=== PATIENT | male | born 1990 | race Caucasian/White ===

== ENCOUNTER 2020-02-27 20:20 | Emergency (ER) | payer BC, OTHER ==
[2020-02-27] MEDS ORDERED: LIDOCAINE 1% W/EPI 1:100,000 MDV 20 ML VIAL ONE (21:17)
--- NOTE | 2020-02-27 21:55 | EDPHYS ---
Physician Documentation [facility] Name: Ho Robbins Age: 29 yrs Sex: Male : 1990 Arrival Date: 02/27/2020 Time: 20:23 Bed 8 Private MD: ED Physician Arthur Sepulveda HPI: 02/26 21:05 This 29 yrs old Male presents to ER via Wheelchair with complaints of cp Laceration To Leg. 21:05 The patient has a laceration related to: broken glass plate occurred at home. The cp laceration(s) is(are) located on the right knee. Onset: The symptoms/episode began/occurred just prior to arrival. Associated signs and symptoms: The patient has no apparent associated signs or symptoms. Historical: - Allergies: 20:33 Bactrim; ll1 - PMHx: 20:33 Hypertension; traumatic brain injury; ll1 - PSHx: 20:33 None; ll1 - Immunization history:: Last tetanus immunization: up to date Flu vaccine is up to date. - Social history:: Smoking status: Patient denies any tobacco usage or history of. ROS: 21:10 Skin: Positive for laceration(s), of the right knee. cp 21:10 All other systems are negative. cp Exam: 21:15 Constitutional: The patient appears in no acute distress, alert, awake, comfortable, cp well developed, well nourished. 21:15 Musculoskeletal/extremity: ROM: full passive range of motion, in the right knee, cp Perfusion: the extremity is normally perfused throughout, Sensation intact. Joints: All joints are normal except the right knee displays 21:15 Skin: injury, laceration(s), the wound is approximately 2.5 cm(s), of the lateral aspect of right knee, that can be described as clean, no foreign body, linear, with moderate bleeding. Vital Signs: 20:31 BP 141 / 97; Pulse 86; Resp 18; Temp 98.3; Pulse Ox 97% ; Weight 91.63 kg; Height 5 ft. ll1 8 in. (172.72 cm); Pain 6/10; 21:57 BP 130 / 88; Pulse 85; Resp 18; Pulse Ox 96% on R/A; wh 20:31 Body Mass Index 30.71 (91.63 kg, 172.72 cm) ll1 Laceration: 21:52 Wound Repair of 2.5cm ( 1.0in ) subcutaneous laceration to right knee. Linear shaped.. cp Distal neuro/vascular/tendon intact. Anesthesia: Wound infiltrated with 4 mls of 1% lidocaine w/ Epi. Wound prep: Moderate cleansing by nurse. Skin closed with 3 4-0 Prolene using horizontal mattress sutures and sterile technique. Dressed with Bacitracin, 4x4's, Kerlix. Patient tolerated well. MDM: 21:00 Patient medically screened. cp 21:15 Differential diagnosis: superficial laceration, tendon injury, vascular injury. cp 21:53 Data reviewed: vital signs, nurses notes, radiologic studies, plain films. Test cp interpretation: by ED physician or midlevel provider: xrays of right knee negative for fracture and/or foreign body. Counseling: I had a detailed discussion with the patient and/or guardian regarding: the historical points, exam findings, and any diagnostic results supporting the discharge/admit diagnosis, radiology results, to return to the emergency department if symptoms worsen or persist or if there are any questions or concerns that arise at home. 02/26 21:01 Order name: XRAY Knee RIGHT 3 view cp 02/26 21:01 Order name: Dressing - Wound; Complete Time: 21:55 cp 02/26 21:01 Order name: Gloves, Sterile; Complete Time: 21:03 cp 02/26 21:01 Order name: Setup Suture Tray; Complete Time: 21:03 cp 02/26 21:01 Order name: Wound Care: please clean and irrigate wound; Complete Time: 21:03 cp Administered Medications: 21:49 Drug: Lidocaine-Epinephrine -1%: (1:100,000) 10 ml {Note: Administered by Provider.} wh Volume: 20 ml; Route: Infiltration; Disposition: 22:30 Chart complete. cp 02/27 00:15 Co-signature as Attending Physician, Arthur Sepulveda MD. rn Disposition: 02/27/20 21:54 Discharged to Home. Impression: Laceration without foreign body of knee - right. - Condition is Stable. - Discharge Instructions: Laceration Care, Adult. - Medication Reconciliation Form, Thank You Letter, Antibiotic Education, Prescription Opioid Use form. - Follow up: Private Physician; When: 10 - 14 days; Reason: Staple/Suture removal. - Problem is new. - Symptoms have improved. Signatures: Dispatcher [employer] EDArthur Whitney MD MD rn Santos Barnes PA PA cp Habalo, Winsy wh Lewis, Lynsay RN RN ll1 Corrections: (The following items were deleted from the chart) 02/26 22:33 21:54 02/27/2020 21:54 Discharged to Home. Impression: Laceration without foreign body wh of knee - right. Condition is Stable. Forms are Medication Reconciliation Form, Thank You Letter, Antibiotic Education, Prescription Opioid Use. Follow up: Private Physician; When: 10 - 14 days; Reason: Staple/Suture removal. Problem is new. Symptoms have improved. cp
--- NOTE | 2020-02-27 21:55 | ER ---
Nurse's Notes [facility] Name: Ho Robbins Age: 29 yrs Sex: Male : 1990 Arrival Date: 02/27/2020 Time: 20:23 Bed 8 Private MD: Diagnosis: Laceration without foreign body of knee-right Presentation: 02/26 20:31 Chief complaint: Patient states: Fell while holding a plate 20 min [employer]. Glass plate ll1 broke and lacerated right leg. Bleeding controlled with pressure. Coronavirus screen: Client denies travel out of the [place] in the last 14 days. At this time, the client does not indicate any symptoms associated with coronavirus-19. Ebola Screen: Patient denies travel to an Ebola-affected area in the 21 days before illness onset. Complicating Factors: Glass or an other foreign body is present in the wound. Initial Sepsis Screen: Does the patient meet any 2 criteria? No. Patient's initial sepsis screen is negative. Risk Assessment: Do you want to hurt yourself or someone else? Patient reports no desire to harm self or others. Onset of symptoms was February 27, 2020. 20:31 Method Of Arrival: Wheelchair ll1 20:31 Acuity: RASHID 4 ll1 21:00 Initial Sepsis Screen: Does the patient have a suspected source of infection? Yes: Skin wh breakdown/wound. Historical: - Allergies: 20:33 Bactrim; ll1 - PMHx: 20:33 Hypertension; traumatic brain injury; ll1 - PSHx: 20:33 None; ll1 - Immunization history:: Last tetanus immunization: up to date Flu vaccine is up to date. - Social history:: Smoking status: Patient denies any tobacco usage or history of. Screenin:00 Abuse screen: Denies threats or abuse. Denies injuries from another. Nutritional wh screening: No deficits noted. Tuberculosis screening: No symptoms or risk factors identified. Fall Risk None identified. Assessment: 21:00 General: Appears in no apparent distress. Behavior is calm, cooperative. Pain: Denies wh pain. Neuro: Level of Consciousness is awake, alert, obeys commands, Oriented to person, place, time, situation. Cardiovascular: Capillary refill < 3 seconds. Respiratory: Airway is patent Respiratory effort is even, unlabored, Respiratory pattern is regular, symmetrical. GI: Abdomen is flat, non-distended. : No signs and/or symptoms were reported regarding the genitourinary system. EENT: No signs and/or symptoms were reported regarding the EENT system. Derm: Skin is intact, is healthy with good turgor, Skin is pink, warm \T\ dry. normal. Musculoskeletal: Circulation, motion, and sensation intact. Injury Description: Laceration sustained to right knee is clean, 2.6 to 7.5 cm long, bleeding moderately. 21:56 Reassessment: Patient appears in no apparent distress at this time. No changes from previously documented assessment. Patient and/or family updated on plan of care and expected duration. Pain level reassessed. Patient is alert, oriented x 3, equal unlabored respirations, skin warm/dry/pink. Vital Signs: 20:31 BP 141 / 97; Pulse 86; Resp 18; Temp 98.3; Pulse Ox 97% ; Weight 91.63 kg; Height 5 ft. ll1 8 in. (172.72 cm); Pain 6/10; 21:57 BP 130 / 88; Pulse 85; Resp 18; Pulse Ox 96% on R/A; wh 20:31 Body Mass Index 30.71 (91.63 kg, 172.72 cm) ll1 ED Course: 20:23 Patient arrived in ED. cl3 20:32 Triage completed. ll1 20:33 Arm band placed on Patient placed in an exam room, on a stretcher. ll1 20:58 Santos Barnes PA is PHCP. cp 20:58 Arthur Sepulveda MD is Attending Physician. cp 21:00 Patient has correct armband on for positive identification. Bed in low position. Call light in reach. Side rails up X 1. Adult w/ patient. Pulse ox on. NIBP on. 21:02 Tisha Rivas is Primary Nurse. 21:32 XRAY Knee RIGHT 3 view In Process Unspecified. EDMS 21:50 Assist provider with laceration repair on right knee that was between 2.6 to 7.5 cm wh using sutures. Set up tray. Performed by Santos PERKINS Dressed with 4X4s, Patient tolerated well. 22:33 Patient did not have IV access during this emergency room visit. Administered Medications: 21:49 Drug: Lidocaine-Epinephrine -1%: (1:100,000) 10 ml {Note: Administered by Provider.} Volume: 20 ml; Route: Infiltration; Outcome: 21:54 Discharge ordered by . nasrin 22:33 Discharged to home ambulatory, with family. 22:33 Condition: stable 22:33 Discharge instructions given to patient, family, Instructed on discharge instructions, follow up and referral plans. wound care, Demonstrated understanding of instructions, follow-up care, wound care. 22:33 Patient left the ED. Signatures: Dispatcher [employer] EDMS Santos Barnes PA PA cp Habalo, Winsy wh Lewis, Charde cl3 Amita Brown, RN RN ll1
[2020-02-27 22:46] VITALS: TEMP 98.3
[2020-02-27 22:48] VITALS: BP 130/88; O2SAT 96
--- NOTE | 2020-02-28 07:14 | RAD REPORT ---
EXAM DESCRIPTION: RAD - Knee Right 3 View - 02/27/2020 9:34 pm CLINICAL HISTORY: laceration, knee pain, possible foreign body COMPARISON: No comparisonsNone. FINDINGS: No fracture, dislocation or periosteal reaction.No joint effusion seen. No joint space cordell rowing. Lateral knee soft tissue wound is evident. Bandaging is in place. No foreign body identifiabl e. IMPRESSION: No acute bone or joint finding. No foreign body identifiable. Bandaging could mask a foreign body of similar density.
== END 2020-02-27 22:33 | disposition home or self-care (01) ==
LOC: ER 20:20
PROC: 0JQN0ZZ Repair Right Lower Leg Subcutaneous Tissue and Fascia, Open Approach (ICD-10-PCS; principal; 2020-02-27)
DX: S81.011A Laceration without foreign body, right knee, initial encounter (principal); W25.XXXA Contact with sharp glass, initial encounter; Y93.9 Activity, unspecified; Y92.009 Unspecified place in unspecified non-institutional (private) residence as the place of occurrence of the external cause; I10 Essential (primary) hypertension; Z88.1 Allergy status to other antibiotic agents; Z87.820 Personal history of traumatic brain injury
CPT/HCPCS: 99284

== ENCOUNTER 2024-05-04 22:11 | Emergency (ER) | payer OTHER ==
[2024-05-04] MEDS ORDERED: NA CHLORIDE 0.9% 2,000 ML ONE (22:31)
[2024-05-04 22:57] LABS: Absolute Basophils 0.1 K/uL (0-0.5); Absolute Eosinophils 0.1 K/uL (0-0.5); Absolute Lymphocytes (CBC) 2.2 K/uL (0.7-4.9); Absolute Monocytes 1.2 K/uL (0.1-1.3); Absolute Neutrophil 6.3 K/uL (1.8-8.0); Basophils % 0.7 % (0-1.3); Eosinophils % 0.9 % (0-4.4); Hematocrit 43.3 % (39.6-49.0); Lymphocytes % 22.6 % (15.3-44.8); MCH 36.1 pg (27.0-35.0); MCHC 34.7 g/dL (32.0-36.0); MCV 103.9 fL (80-100); MPV 7.1 fL (7.6-11.3); Monocytes % 12.3 % (3.3-12.3); Neutrophils % 63.5 % (41.7-73.7); Nucleated Red Blood Cells % 0.1 % (0-0); PT Prothrombin Time 12.2 SECONDS (9.4-12.5); PTT, Activated Partial Thromb 33.1 SECONDS (24.3-36.9); Platelets 228 thou/uL (152-406); Protime INR 1.09; RBC Red Blood Cell Count 4.17 M/uL (4.33-5.43); Red Cell Distribution Width 12.2 % (12.1-15.2)
[2024-05-04 23:09] LABS: ALT/SGPT 47 U/L (16-61); AST/SGOT 102 U/L (15-37); Albumin 3.8 g/dL (3.4-5.0); Albumin/Globulin Ratio 0.9 (1.1-1.8); Alkaline Phosphatase 92 U/L (45-117); Anion Gap 9.7 mEq/L (5.0-15.0); BUN Blood Urea Nitrogen 18 mg/dL (7-18); Bicarbonate 25 mEq/L (21-32); Bilirubin Total 0.4 mg/dL (0.2-1.0); Globulin 4.2 g/dL (2.3-3.5); Glomerular Filtration Rate 120 ml/min (=/>90); Glucose Level 97 mg/dL (74-106); Potassium 3.7 mEq/L (3.5-5.1); Sodium Level 135 mEq/L (136-145)
[2024-05-04 23:10] LABS: Bilirubin Direct < 0.2 mg/dL (0-0.2); Bilirubin Indirect, Calculated 0.2 mg/dL (0.2-0.8)
--- NOTE | 2024-05-05 00:54 | ER ---
Nurse's Notes [facility] Name: Ho Robbins Age: 34 yrs Sex: Male : 1990 Arrival Date: 05/04/2024 Time: 22:11 Bed 7 Private MD: Diagnosis: Acute Cannabis Intoxication Presentation: 05/04 22:17 Chief complaint: EMS states: patient took 1000mg THC gummy outside the gym. EMS states al5 he took the gummy, asked an individual for a ride home, decided to lay down on the concrete. Coronavirus screen: At this time, the client does not indicate any symptoms associated with coronavirus-19. Ebola Screen: No symptoms or risks identified at this time. Initial Sepsis Screen: Does the patient meet any 2 criteria? HR > 90 bpm. No. Patient's initial sepsis screen is negative. Does the patient have a suspected source of infection? No. Patient's initial sepsis screen is negative. Risk Assessment: Do you want to hurt yourself or someone else? Patient reports no desire to harm self or others. Onset of symptoms was May 04, 2024. 22:17 Method Of Arrival: EMS: [facility] al5 22:17 Acuity: RASHID 3 al5 22:22 Care prior to arrival: Glucose check: 77. al5 Triage Assessment: 22:21 General: Appears in no apparent distress. comfortable, Behavior is calm, cooperative. al5 Pain: Denies pain. EENT: No signs and/or symptoms were reported regarding the EENT system. Neuro: Level of Consciousness is awake, alert, obeys commands, Oriented to person, place, time, situation. Cardiovascular: Capillary refill < 3 seconds Patient's skin is warm and dry. Respiratory: Airway is patent Respiratory effort is even, unlabored, Respiratory pattern is regular, symmetrical. GI: No signs and/or symptoms were reported involving the gastrointestinal system. : No signs and/or symptoms were reported regarding the genitourinary system. Derm: Skin is intact, is healthy with good turgor, Skin is pink, warm \T\ dry. normal. Musculoskeletal: No signs and/or symptoms reported regarding the musculoskeletal system. Historical: - Allergies: 22:21 Bactrim; al5 - PMHx: 22:21 Hypertension; traumatic brain injury; al5 - PSHx: 22:21 None; al5 - Immunization history:: Adult Immunizations up to date. - Infectious Disease History:: Denies. - Social history:: Smoking status: Patient denies any tobacco usage or history of. Patient uses street drugs, marijuana. - Family history:: not pertinent. Screenin:40 [facility] ED Fall Risk Assessment (Adult) History of falling in the last 3 months, bm8 including since admission No falls in past 3 months (0 pts) Confusion or Disorientation No (0 pts) Intoxicated or Sedated Yes (3 pts) Impaired Gait Yes (1 pt) Mobility Assist Device Used No (0 pt) Altered Elimination No (0 pt) Score/Fall Risk Level 3 or more points = High Risk Oriented to surroundings, Maintained a safe environment, Educated pt \T\ family on fall prevention, incl call for assistance when getting out of bed, Assessed \T\ reinforced patient's understanding of fall precautions, Hourly rounding (assess needs \T\ fall precautionary measures) done, Used ambulatory aids as needed (educated on \T\ assisted with), Used gait belt as appropriate. Abuse screen: Denies threats or abuse. Nutritional screening: No deficits noted. Tuberculosis screening: No symptoms or risk factors identified. Assessment: 22:29 Reassessment: pt refused EKG. bm8 22:40 General: Appears in no apparent distress. comfortable, Behavior is calm, cooperative, bm8 appropriate for age. Pain: Denies pain. Neuro: Level of Consciousness is awake, alert, obeys commands, Oriented to person, place, time, situation, Appropriate for age. Cardiovascular: Denies chest pain, Heart tones S1 S2 present Capillary refill < 3 seconds in bilateral fingers. Respiratory: Airway is patent Respiratory effort is even, unlabored, Respiratory pattern is regular, symmetrical, Breath sounds are clear bilaterally. GI: No signs and/or symptoms were reported involving the gastrointestinal system. : No signs and/or symptoms were reported regarding the genitourinary system. EENT: No signs and/or symptoms were reported regarding the EENT system. Derm: No signs and/or symptoms reported regarding the dermatologic system. Musculoskeletal: No signs and/or symptoms reported regarding the musculoskeletal system. 05/05 00:05 Reassessment: Patient appears in no apparent distress at this time. Patient and/or bm8 family updated on plan of care and expected duration. Pain level reassessed. Patient is alert, oriented x 3, equal unlabored respirations, skin warm/dry/pink. Patient denies pain at this time. Patient states symptoms have improved. 00:42 Reassessment: Patient appears in no apparent distress at this time. Patient and/or bm8 family updated on plan of care and expected duration. Pain level reassessed. Patient is alert, oriented x 3, equal unlabored respirations, skin warm/dry/pink. Patient denies pain at this time. Patient states symptoms have improved. 00:42 Reassessment: brother has arrived to take pt home, pending discharge. bm8 Vital Signs: 05/04 22:17 BP 141 / 104; Pulse 100; Resp 16; Temp 98.6; Pulse Ox 98% on R/A; Weight 99.79 kg; al5 Height 5 ft. 7 in. ; Pain 0/10; 22:40 BP 134 / 91; Pulse 100; Resp 13; Temp 98.6; Pulse Ox 100% on R/A; Pain 0/10; bm8 05/05 00:05 BP 123 / 87; Pulse 107; Resp 18; Temp 98.6; Pulse Ox 100% ; Pain 0/10; bm8 00:42 BP 154 / 98; Pulse 100; Resp 18; Temp 98.6; Pulse Ox 99% ; Pain 0/10; bm8 05/04 22:17 Body Mass Index 34.46 (99.79 kg, 170.18 cm) al5 05/04 22:17 Pain Scale: Adult al5 22:40 Pain Scale: Adult bm8 05/05 00:05 Pain Scale: Adult bm8 00:42 Pain Scale: Adult bm8 Josephine Coma Score: 05/04 22:40 Eye Response: spontaneous(4). Motor Response: obeys commands(6). Verbal Response: bm8 oriented(5). Total: 15. 05/05 00:05 Eye Response: spontaneous(4). Motor Response: obeys commands(6). Verbal Response: bm8 oriented(5). Total: 15. 00:42 Eye Response: spontaneous(4). Motor Response: obeys commands(6). Verbal Response: bm8 oriented(5). Total: 15. 19:38 Eye Response: spontaneous(4). Motor Response: obeys commands(6). Verbal Response: sp4 confused(4). Total: 14. ED Course: 05/04 22:17 Patient arrived in ED. ha1 22:20 Triage completed. al5 22:22 Arm band placed on right wrist. Patient placed in the treatment room, on a stretcher. al5 22:27 Isra Cline MD is Attending Physician. sp4 22:37 Kevin Leon, RN is Primary Nurse. bm8 22:37 No provider procedures requiring assistance completed. Initial lab(s) drawn, by ED bm8 staff, sent to lab. Inserted saline lock: 20 gauge in right antecubital area, using aseptic technique. Blood collected. Flushed with 10 mL NS. Patient maintains SpO2 saturation greater than 95% on room air. 22:40 Patient has correct armband on for positive identification. Placed in gown. Bed in low bm8 position. Call light in reach. Side rails up X 1. Client placed on continuous cardiac and pulse oximetry monitoring. NIBP monitoring applied. phototypesetting equipment monitor on. Pulse ox on. NIBP on. Door closed. Noise minimized. Warm blanket given. Pillow given. Verbal reassurance given. 05/05 00:59 Provided Education on: post er care. bm8 00:59 IV discontinued, intact, bleeding controlled, No redness/swelling at site. Pressure bm8 dressing applied. Administered Medications: 05/04 22:43 Drug: NS 0.9% IV 1000 ml IV at 1000 ml once; to be given as a bolus over 60 minutes bm8 Route: IV; Rate: 1000 ml; Site: right antecubital; 05/05 01:00 Follow up: IV Status: Completed infusion; IV Intake: 1000ml bm8 00:05 Drug: NS 0.9% IV 1000 ml IV at 1000 ml once; to be given as a bolus over 60 minutes bm8 Route: IV; Rate: 1000 ml; Site: right antecubital; 01:00 Follow up: Response: No adverse reaction; IV Status: Completed infusion; IV Intake: bm8 1000ml Medication: 05/04 22:40 VIS not applicable for this client. bm8 Intake: 05/05 01:00 IV: 1000ml; Total: 1000ml. bm8 01:00 IV: 1000ml; Total: 2000ml. bm8 Outcome: 00:53 Discharge ordered by . sp4 01:00 Patient left the ED. bm8 Signatures: Beverly Dave RN RN ha1 Isra Cline MD MD sp4 Kevin Leon RN RN bm8 Katharina Day RN RN al5
--- NOTE | 2024-05-05 00:54 | EDPHYS ---
Physician Documentation [facility] Name: Ho Robbins Age: 34 yrs Sex: Male : 1990 Arrival Date: 05/04/2024 Time: 22:11 Bed 7 Private MD: ED Physician Isra Cline HPI: 05/04 22:28 This 34 yrs old Male presents to ER via EMS with complaints of Drug Abuse. sp4 05/05 19:38 34-year-old male presents after he ingested cannabis gummy. Patient is acutely sp4 intoxicated the ambulance was called because patient had difficulty walking. . Historical: - Allergies: 05/04 22:21 Bactrim; al5 - PMHx: 22:21 Hypertension; traumatic brain injury; al5 - PSHx: 22:21 None; al5 - Immunization history:: Adult Immunizations up to date. - Infectious Disease History:: Denies. - Social history:: Smoking status: Patient denies any tobacco usage or history of. Patient uses street drugs, marijuana. - Family history:: not pertinent. ROS: 05/05 19:38 Constitutional: Negative for fever, chills, and weight loss, positive for acute sp4 intoxication otherwise full ROS is not available All other systems are negative, Exam: 19:38 Constitutional: This is a well developed, well nourished patient who is awake, alert, sp4 and in no acute distress. Head/Face: Normocephalic, atraumatic. Eyes: Pupils equal round and reactive to light, extra-ocular motions intact. Lids and lashes normal. Conjunctiva and sclera are not injected. Cornea within normal limits. Periorbital areas with no swelling, redness, or edema. ENT: Nares patent. No nasal discharge, no septal abnormalities noted. Tympanic membranes are normal and external auditory canals are clear. Oropharynx with no redness, swelling, or masses, exudates, or evidence of obstruction, uvula midline. Mucous membranes moist. Neck: Trachea midline, no thyromegaly or masses palpated, and no cervical lymphadenopathy. Supple, full range of motion without nuchal rigidity, or vertebral point tenderness. Chest/axilla: Normal chest wall appearance and motion. Nontender with no deformity. No lesions are appreciated. Cardiovascular: Regular rate and rhythm with a normal S1 and S2. No gallops, murmurs, or rubs. Normal PMI, no JVD. No pulse deficits. Respiratory: Lungs have equal breath sounds bilaterally, clear to auscultation and percussion. No rales, rhonchi or wheezes noted. No increased work of breathing, no retractions or nasal flaring. Abdomen/GI: Soft, with normal bowel sounds. No distension or tympany. No guarding or rebound. No evidence of tenderness throughout. Back: No spinal tenderness. No costovertebral tenderness. Skin: Warm, dry with normal turgor. Normal color with no rashes, no lesions, and no evidence of cellulitis. MS/ Extremity: Pulses equal, no cyanosis. Neurovascular intact. Full, normal range of motion. Neuro: Awake and alert, GCS 14, oriented to person, Cranial nerves II-XII grossly intact. Motor strength 5/5 in all extremities. Sensory grossly intact. Patient is able to communicate. Appears heavily intoxicated Vital Signs: 05/04 22:17 BP 141 / 104; Pulse 100; Resp 16; Temp 98.6; Pulse Ox 98% on R/A; Weight 99.79 kg; al5 Height 5 ft. 7 in. ; Pain 0/10; 22:40 BP 134 / 91; Pulse 100; Resp 13; Temp 98.6; Pulse Ox 100% on R/A; Pain 0/10; bm8 05/05 00:05 BP 123 / 87; Pulse 107; Resp 18; Temp 98.6; Pulse Ox 100% ; Pain 0/10; bm8 00:42 BP 154 / 98; Pulse 100; Resp 18; Temp 98.6; Pulse Ox 99% ; Pain 0/10; bm8 05/04 22:17 Body Mass Index 34.46 (99.79 kg, 170.18 cm) al5 05/04 22:17 Pain Scale: Adult al5 22:40 Pain Scale: Adult bm8 05/05 00:05 Pain Scale: Adult bm8 00:42 Pain Scale: Adult bm8 [place] Coma Score: 05/04 22:40 Eye Response: spontaneous(4). Motor Response: obeys commands(6). Verbal Response: bm8 oriented(5). Total: 15. 05/05 00:05 Eye Response: spontaneous(4). Motor Response: obeys commands(6). Verbal Response: bm8 oriented(5). Total: 15. 00:42 Eye Response: spontaneous(4). Motor Response: obeys commands(6). Verbal Response: bm8 oriented(5). Total: 15. 19:38 Eye Response: spontaneous(4). Motor Response: obeys commands(6). Verbal Response: sp4 confused(4). Total: 14. MDM: 05/04 22:29 Medical Screening Exam initiated sp4 05/05 19:41 Differential diagnosis: drug withdrawal. acute psychotic break, depression, psychosis sp4 secondary to non-compliance. Data reviewed: vital signs, nurses notes, EMS record, old medical records, lab test result(s). ED course: Patient has improved while in the emergency room. Stable for discharge home. Advised to stay away from recreational substances . 05/04 22:28 Order name: Acetaminophen; Complete Time: 00:22 sp4 05/04 22:28 Order name: Basic Metabolic Panel; Complete Time: 00: sp4 05/04 22:28 Order name: CBC with Diff; Complete Time: 00:22 sp4 05/04 22:28 Order name: ETOH Level; Complete Time: 00:22 sp4 05/04 22:28 Order name: Hepatic Function; Complete Time: 00: sp4 05/04 22:28 Order name: PT-INR; Complete Time: 00:22 sp4 05/04 22:28 Order name: Ptt, Activated; Complete Time: 00:22 sp4 05/04 22:28 Order name: Salicylate; Complete Time: 00:22 sp4 05/04 22:28 Order name: IV Saline Lock; Complete Time: : sp4 05/04 22:28 Order name: Labs collected and sent; Complete Time: :29 sp4 05/04 22:28 Order name: Suicide Screening ([place]); Complete Time: : sp4 Administered Medications: 05/04 22:43 Drug: NS 0.9% IV 1000 ml IV at 1000 ml once; to be given as a bolus over 60 minutes bm8 Route: IV; Rate: 1000 ml; Site: right antecubital; 05/05 01:00 Follow up: IV Status: Completed infusion; IV Intake: 1000ml bm8 00:05 Drug: NS 0.9% IV 1000 ml IV at 1000 ml once; to be given as a bolus over 60 minutes bm8 Route: IV; Rate: 1000 ml; Site: right antecubital; 01:00 Follow up: Response: No adverse reaction; IV Status: Completed infusion; IV Intake: bm8 1000ml Disposition: 19:42 Chart complete. sp4 Disposition Summary: 05/05/24 00:53 Discharge Ordered Notes: Location: Home sp4 Problem: new sp4 Symptoms: have improved sp4 Condition: Stable sp4 Diagnosis - Acute Cannabis Intoxication sp4 Followup: sp4 - With: Private Physician - When: 7 - 10 days - Reason: Recheck today's complaints Discharge Instructions: - Discharge Summary Sheet sp4 - Cannabis Use Disorder sp4 Forms: - Patient Portal Instructions sp4 Signatures: Dispatcher [employer] EDIsra Pearce MD MD sp4 Kevin Leon RN RN bm8 Katharina Day RN RN al5 Corrections: (The following items were deleted from the chart) 05/04 22:29 22:28 EKG - Nurse/Tech ordered. sp4 bm8 22:29 22:29 ACETAMINOPHEN+C.LAB.BRZ ordered. EDMS EDMS 22:29 22:29 BASIC METABOLIC PANEL+C.LAB.BRZ ordered. EDMS EDMS 22:29 22:29 CBC+H.LAB.BRZ ordered. EDMS EDMS 22:29 22:29 ETHANOL+C.LAB.BRZ ordered. EDMS EDMS 22:29 22:29 HEPATIC FUNCTION+C.LAB.BRZ ordered. EDMS EDMS 22:29 22:29 PROTIME (+INR)+COAG.LAB.BRZ ordered. EDMS EDMS 22:29 22:29 PTT, ACTIVATED+COAG.LAB.BRZ ordered. EDMS EDMS 22:29 22:29 SALICYLATE+C.LAB.BRZ ordered. EDMS EDMS 22:29 22:29 URINE DRUG SCREEN+UC.LAB.BRZ ordered. EDMS EDMS
[2024-05-05 03:52] VITALS: TEMP 98.6
[2024-05-05 04:05] VITALS: BP 154/98; O2SAT 99
== END 2024-05-05 01:00 | disposition home or self-care (01) ==
LOC: ER 22:11
DX: F12.929 Cannabis use, unspecified with intoxication, unspecified (principal)
CPT/HCPCS: 96361; 85025; 80048; 36415; 85610; 80076; 85730; 96360; 99285; 80143; 80179; 82077; J7030